=== PATIENT | male | born 1990 | race Caucasian/White ===

== ENCOUNTER 2017-12-03 11:53 | Emergency (ER) | payer MEDICAID ==
[~2017-12-03] VITALS: Ht 177.8 cm; Wt 88.5 kg
[2017-12-03 11:53] VITALS: BP_SYST 181
[2017-12-03 12:32] LABS: BASOPHILS # (AUTO) 0.2 K/uL (0.0-0.2); BASOPHILS % (AUTO) 2.3 % (0.0-2.0); EOSINOPHILS # (AUTO) 0.1 K/uL (0.0-0.4); EOSINOPHILS % (AUTO) 1.7 % (0.0-4.0); HEMATOCRIT 49.8 % (36-54); HEMOGLOBIN 16.8 g/dL (14.0-18.0); LYMPHOCYTES # (AUTO) 2.6 K/uL (1.0-5.5); LYMPHOCYTES % (AUTO) 34.9 % (20.5-51.5); MEAN CORPUSCULAR HEMOGLOBIN 31 pg (27-31); MEAN CORPUSCULAR HGB CONC 34 % (32-36); MEAN CORPUSCULAR VOLUME 91 fL (79.0-98.0); MONOCYTES # (AUTO) 0.6 K/uL (0.0-1.0); MONOCYTES % (AUTO) 7.8 % (1.7-9.3); NEUTROPHILS # (AUTO) 3.9 K/uL (1.8-7.7); NEUTROPHILS % (AUTO) 53.3 % (40.0-70.0); PLATELET COUNT (AUTO) 271 K/uL (130-430); RED BLOOD CELL COUNT(AUTO) 5.49 MIL/uL (4.2-6.2); RED CELL DISTRIBUTION WIDTH 12.6 % (9.0-15.0); WHITE BLOOD COUNT (AUTO) 7.4 K/uL (4.8-10.8)
[2017-12-03 12:40] LABS: BILIRUBIN,URINE NEGATIVE (NEGATIVE); BLOOD, URINE NEGATIVE (NEGATIVE); CLARITY/URINE CLEAR (CLEAR); COLOR,URINE YELLOW (YELLOW); GLUCOSE,URINE NEGATIVE (NEGATIVE); KETONES,URINE NEGATIVE (NEGATIVE); LEUKOCYTE ESTERASE ,URINE NEGATIVE (NEGATIVE); NITRITE, URINE NEGATIVE (NEGATIVE); PROTEIN URINE NEGATIVE (NEGATIVE); UROBILINOGEN,URINE 0.2 (0.2-1.0)
[2017-12-03 12:48] LABS: CALCIUM 9.7 mg/dL (8.4-11.0); CREATININE 0.97 mg/dL (0.55-1.30); POTASSIUM 4.6 mmol/L (3.5-5.1)
[2017-12-03 12:55] LABS: ALBUMIN 4.5 g/dL (3.4-4.8); TOTAL BILIRUBIN 0.6 mg/dL (0.0-1.0)
[2017-12-03 12:57] LABS: PROTHROMBIN TIME 9.8 SECS (9.5-12.5)
[2017-12-03] MEDS ORDERED: cloNIDine HCL 0.1 MG TABLET PO ONE (14:15)
[2017-12-03 15:19] VITALS: BP_SYST 163
== END 2017-12-03 15:19 | disposition home or self-care (01) ==
LOC: SED 11:53
DX: I16.0 Hypertensive urgency (principal)
CPT/HCPCS: 36415; 71045; 80053; 81003; 82550-TC; 83880; 84484; 85025; 85610-TC; 85730-TC; 99285

== ENCOUNTER 2022-03-03 16:18 | Emergency (ER) | payer SELFPAY ==
[~2022-03-03] VITALS: Ht 175.3 cm; Wt 90.7 kg
[2022-03-03 17:14] VITALS: BP_SYST 161
--- NOTE | 2022-03-03 17:20 | NUR ---
Patient triaged and placed in waiting room. VSS and patient appears in no acute distress at this time. Accompanied by FATHER, awaiting available bed, and MD notified of need for MSE.
--- NOTE | 2022-03-03 17:23 | NUR ---
PATIENT BROUGHT IN COMPLAINING OF 4 DAYS NON TRAUMATIC LEFT SHOULDER PAIN. PATIENT REPORTS HAS HISTORY OF HTN AND NON COMPLAINT WITH MEDICATION. PAIN IS DULL 4/10. VSS. NO ACUTE DISTESS. PATIENT AWAITING MD NOVA.
--- NOTE | 2022-03-03 19:12 | NUR ---
Patient to ER CHAIR for evaluation.
[2022-03-03] MEDS ORDERED: IBUPROFEN 800 MG TABLET PO ONE (19:15)
--- NOTE | 2022-03-03 19:36 | NUR ---
MEDICATED PER PATIENT'S ORDERS
[2022-03-03] MEDS ORDERED: IBUP-1971 PO ×3 (19:39→19:57)
[2022-03-03 19:53] VITALS: BP_SYST 152
--- NOTE | 2022-03-03 19:53 | NUR ---
Patient given written and verbal discharge instructions and verbalizes understanding. ER MD discussed with patient the results and treatment provided. Patient in stable condition. ID arm band removed. IV catheter removed intact and dressing applied, no active bleeding. Rx of MOTRIN given. Patient educated on pain management and to follow up with PMD. Pain Scale 0/10 Opportunity for questions provided and answered. Medication side effect fact sheet provided.
== END 2022-03-03 19:53 | disposition home or self-care (01) ==
LOC: SED 16:18
DX: S29.012A Strain of muscle and tendon of back wall of thorax, initial encounter (principal); X50.9XXA Other and unspecified overexertion or strenuous movements or postures, initial encounter; Y93.89 Activity, other specified; Y92.89 Other specified places as the place of occurrence of the external cause; Y99.8 Other external cause status
CPT/HCPCS: 71045; 99283